=== PATIENT | male | born 1985 | race Caucasian/White ===

== ENCOUNTER 2021-08-06 23:56 | Emergency (ER) | payer OTHER ==
[~2021-08-06] VITALS: Ht 167.6 cm; Wt 81.7 kg
[2021-08-07 01:59] LABS: ABSOLUTE NEUTROPHILS 4.4 thou/uL (1.4-8.2); BASOPHILS 0.8 % (0.0-2.0); EOSINOPHILS 0.9 % (0.0-3.0); HEMATOCRIT 42.2 % (42.0-52.0); HEMOGLOBIN 15.1 gm/dL (14.0-18.0); LYMPHOCYTES 28.8 % (24.0-44.0); MCH 30.9 pg (26.0-34.0); MCHC 35.7 g/dL (28.0-37.0); MCV 86.5 fL (80.0-100.0); PLATELET COUNT 266 thou/uL (150-400); POLYS 60.5 % (36.0-66.0); RBC 4.88 mil/uL (4.50-6.00); WBC 7.3 thou/uL (4.0-11.0)
[2021-08-07 02:00] LABS: CALCIUM 9.2 mg/dL (8.5-10.1); POTASSIUM 3.5 mmol/L (3.5-5.1)
[2021-08-07 02:09] LABS: ALBUMIN 4.1 g/dL (3.4-5.0); TOTAL BILIRUBIN 0.2 mg/dL (0.2-1.0); TOTAL PROTEIN 7.5 g/dL (6.4-8.2)
[2021-08-07 02:33] VITALS: BP 158/104
--- NOTE | 2021-08-07 11:12 | EKG ---
[address] [place] [address] ELECTROCARDIOGRAM REPORT Name: HANNAH SANCHEZ Room #: [facility] Yamila#: [id number] Admission: 08/06/21 Attend Phys: Discharge: 08/07/21 Date of : 81 Report #: [id number] [facility] ED Test Date: 2021-08-07 Test Time: 00:07:25 Pat Name: HANNAH SANCHEZ Department: Room: Gender: [employer] Professor: LINDA : 1985 Requested By: Aldair Caal Order Number: [id number] MD: Russ Montenegro Measurements Intervals [place] Rate: 91 P: 43 NM: 165 QRS: 60 QRSD: 95 T: -2 QT: 346 QTc: 426 Interpretive Statements Sinus rhythm Probable left atrial enlargement Borderline T wave abnormalities No previous ECG available for comparison Electronically Signed On 08-07-2021 11:12:49 RDA by Russ Montenegro [email or web address] <ELECTRONICALLY SIGNED> By: Russ Montenegro MD, [facility] 08/07/21 1112 0007 Russ Montenegro MD, FACC /EPI
== END 2021-08-07 02:34 | disposition home or self-care (01) ==
LOC: ER 23:56
PROVIDERS: Emergency Medicine
DX: R07.89 Other chest pain (principal); R06.02 Shortness of breath